=== PATIENT | female | born 1985 | race Caucasian/White ===

== ENCOUNTER 2016-12-09 21:48 | Emergency (ER) | payer OTHER ==
[~2016-12-09] VITALS: Ht 157.5 cm; Wt 95.3 kg
[2016-12-09 22:03] VITALS: BP 118/81
--- NOTE | 2016-12-09 22:58 | NUR ---
AMBULATED TO ER BED 8
--- NOTE | 2016-12-09 23:10 | NUR ---
31 Y/O HERE C/O RASH TO BILATERAL HANDS AND FEET THAT DOES NOT GO AWAY. PER PT SHE WAS RECENTLY TREAT IT FOR A FUNGAL INFECTION ON FEET, BUT NOW THE RASH APPEARED ON BOTH HANDS. DENIES ANY FEVER, NAUSEA OR VOMITTING.
--- NOTE | 2016-12-09 23:55 | NUR ---
Patient being evaluated by physician at bedside.
[2016-12-10 01:28] VITALS: BP 142/82
== END 2016-12-10 01:28 | disposition home or self-care (01) ==
LOC: MED 21:48
DX: R21 Rash and other nonspecific skin eruption (principal)